=== PATIENT | male | born 1975 | race Caucasian/White ===

== ENCOUNTER → 2017-02-26 | Outpatient (CLI) | payer BC, OTHER ==
[2010-11-17 13:04] VITALS: BP 123/87
[2017-02-26 15:54] LABS: HEMATOCRIT 49.6 % (42.0-52.0); HEMOGLOBIN 16.9 g/dL (14.0-18.0); MEAN CORPUSCULAR HEMOGLOBIN 30.2 PG (27-31); MEAN CORPUSCULAR HGB CONC 34.1 g/dL (33-37); MEAN CORPUSCULAR VOLUME 88.6 FL (80-90); MEAN PLATELET VOLUME 10.9 FL (7.4-12.2)
[2017-02-26 15:55] LABS: BASOPHILS # (AUTO) 0.04 10*3/UL; BASOPHILS % (AUTO) 0.4 % (0-1); EOSINOPHILS # (AUTO) 0.11 10*3/UL; EOSINOPHILS % (AUTO) 1.1 % (0-8); LYMPHOCYTES # (AUTO) 3.15 10*3/uL; MONOCYTES # (AUTO) 1.06 10*3/UL (0.3-0.8); MONOCYTES % (AUTO) 10.4 % (5-15); NEUTROPHILS % (AUTO) 56.7 % (50-80); PLATELET MORPHOLOGY COMMENT NORMAL MORPHOLOGY (NORM); RBC MORPHOLOGY COMMENT NORMAL MORPHOLOGY (NORM); WBC MORPHOLOGY COMMENT NORMAL MORPHOLOGY (NORM)
[2017-02-26 15:59] LABS: BLOOD UREA NITROGEN 21 mg/dL (7-22); CALCIUM 9.8 mg/dL (8.7-10.7); EST GLOMERULAR FILTRATION > 60 (>60 ml/min/1.73m(2))
== END ==
LOC: LAB 15:30
PROVIDERS: ATTEND Urology
DX: N50.819 Testicular pain, unspecified (principal)
CPT/HCPCS: 36415; 80048; 85025

== ENCOUNTER 2017-03-15 09:17 | Emergency (ER) | payer BC, OTHER ==
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
[2017-03-15] MEDS ORDERED: Sodium Chloride 0.9% 1,000 ML PRIMARY IV ONE (09:37)
[2017-03-15] MEDS ORDERED: NORMAL SALINE 10 ML SYRINGE FLUSH IVP PRN (09:37)
[2017-03-15 09:45] LABS: BASOPHILS # (AUTO) 0.06 10*3/UL; BASOPHILS % (AUTO) 0.3 % (0-1); EOSINOPHILS # (AUTO) 0 10*3/UL; EOSINOPHILS % (AUTO) 0 % (0-8); HEMATOCRIT 47.9 % (42.0-52.0); HEMOGLOBIN 15.8 g/dL (14.0-18.0); LYMPHOCYTES # (AUTO) 1.25 10*3/uL; MEAN CORPUSCULAR HEMOGLOBIN 30.1 PG (27-31); MEAN CORPUSCULAR VOLUME 91.2 FL (80-90); MEAN PLATELET VOLUME 11.4 FL (7.4-12.2); MONOCYTES # (AUTO) 0.74 10*3/UL (0.3-0.8); MONOCYTES % (AUTO) 4.3 % (5-15); NEUTROPHILS # (AUTO) 15.18 10*3/UL; NEUTROPHILS % (AUTO) 87.9 % (50-80); RED BLOOD COUNT 5.25 10^6/uL (4.70-6.10)
[2017-03-15 09:47] LABS: PLATELET MORPHOLOGY COMMENT NORMAL MORPHOLOGY (NORM); RBC MORPHOLOGY COMMENT NORMAL MORPHOLOGY (NORM); WBC MORPHOLOGY COMMENT NORMAL MORPHOLOGY (NORM)
[2017-03-15 09:49] LABS: BLOOD UREA NITROGEN 15 mg/dL (7-22); BUN/CREATININE RATIO 13.63 (6-20); CALCIUM 9.2 mg/dL (8.7-10.7); EST GLOMERULAR FILTRATION > 60 (>60 ml/min/1.73m(2)); SERUM ALBUMIN 4.6 g/dL (3.5-4.8)
[2017-03-15 12:07] LABS: AMPHETAMINE SCREEN NEGATIVE (NEG); CANNABINOID SCREEN,URINE NEGATIVE (NEG); COCAINE SCREEN NEGATIVE (NEG); METHADONE URINE SCREEN NEGATIVE (NEG); METHAMPHETAMINES SCREEN,URINE NEGATIVE (NEG); OPIATE SCREEN,URINE NEGATIVE (NEG); URINE SAMPLE TYPE VOIDED SPECIMEN; URINE SPECIFIC GRAVITY - MAN 1.015
[2017-03-15 12:57] LABS: SALICYLATE < 1.0 mg/dl (0-20)
[2017-03-15 13:14] LABS: FREE T4 (FREE THYROXINE) 0.89 ng/dL (0.93-1.71)
--- NOTE | 2017-03-15 13:15 | DI ---
XR CXR 2VW PA/LAT,03/15/2017 12:25 PM: Clinical History: Hypoxia Previous Exam: May 07, 2013 Findings: A single frontal radiograph of the chest is obtained, and demonstrates clear lungs. The cardiomediast inum and bony thorax are unremarkable. Impression: Normal chest.
[2017-03-15 23:44] VITALS: RESP 15; TEMP 97.6
== END 2017-03-15 19:10 ==
LOC: ER 09:17
DX: T40.4X2A Poisoning by other synthetic narcotics, intentional self-harm, initial encounter (principal); R45.851 Suicidal ideations
CPT/HCPCS: 71010; 71020; 80053; 80305; 80329; 84439; 84443; 85025; 90791; 96360; 96361; 99284